=== PATIENT | female | born 1995 | race Caucasian/White ===

== ENCOUNTER 2020-06-05 02:45 | Emergency (ER) | payer OTHER ==
[~2020-06-05] VITALS: Ht 167.6 cm; Wt 59.9 kg
[2020-06-05] MEDS ORDERED: ZITHROMAX500 MG PO (04:26)
[2020-06-05] MEDS ORDERED: ZYNCOF 20-400120 ML PO (04:26)
== END 2020-06-05 04:47 ==
LOC: ER 02:45
DX: B34.9 Viral infection, unspecified (principal); R05 Cough

== ENCOUNTER 2021-05-15 16:54 | Emergency (ER) | payer OTHER ==
[~2021-05-15] VITALS: Ht 167.6 cm; Wt 56.7 kg
[~2021-05-15 16:54] MED LIST: ZITHROMAX500 MG PO; ZYNCOF 20-400120 ML PO
[2021-05-15] MEDS ORDERED: FLONASE ALLERG9.9 ML NASAL (19:28)
[2021-05-15] MEDS ORDERED: TUSSIN DM CLEA118 M1 PO (19:28)
[2021-05-15] MEDS ORDERED: ZYRTEC10 MG PO (19:29)
== END 2021-05-15 19:34 | disposition home or self-care (01) ==
LOC: ER 16:54
DX: J30.9 Allergic rhinitis, unspecified (principal); R05.8 Other specified cough; Z88.6 Allergy status to analgesic agent